=== PATIENT | female | born 1945 | race Hispanic/Latino ===

== ENCOUNTER 2018-01-20 12:39 | Inpatient (IN) | payer MEDICARE ==
[2018-01-20 13:31] LABS: Basophils % (Auto) 0.5 % (0.0-1.8); Eosinophils # (Auto) 0.3 K/mm3 (0.0-0.4); Eosinophils % (Auto) 3.2 % (0.0-4.3); Hematocrit 36.5 % (30.3-42.9); Hemoglobin 11.7 gm/dl (10.1-14.3); Lymphocytes # (Auto) 1.9 K/mm3 (1.2-5.4); Lymphocytes % (Auto) 22.6 % (13.4-35.0); Mean Corpuscular HGB Conc 32 % (30-34); Mean Corpuscular Hemoglobin 28 pg (28-32); Mean Corpuscular Volume 86 fl (79-97); Monocytes # (Auto) 0.6 K/mm3 (0.0-0.8); Monocytes % (Auto) 7.4 % (0.0-7.3); Platelet Count 214 K/mm3 (140-440); Red Blood Count 4.22 M/mm3 (3.65-5.03); Red Cell Distribution Width 14.7 % (13.2-15.2)
[2018-01-20 13:50] LABS: Alanine Aminotransferase 13 units/L (7-56); Albumin 3.9 g/dL (3.9-5); BUN/Creatinine Ratio 28; Blood Urea Nitrogen 11 mg/dL (7-17); Calcium 8.7 mg/dL (8.4-10.2); Hemolysis Index 4
[2018-01-20 14:29] LABS: Bilirubin,Urine NEG (Negative); Blood,Urine NEG (Negative); Color,Urine Yellow (Yellow); Protein,Urine <15 mg/dL mg/dL (Negative); Urobilinogen,Urine < 2.0 mg/dL (<2.0)
[2018-01-20 14:34] LABS: Amphetamine Screen,Urine PRESUMPTIVE NEGATIVE; Benzodiazepines Screen,Urine PRESUMPTIVE NEGATIVE; Cannabinoid Screen,Urine PRESUMPTIVE NEGATIVE; Cocaine Screen,Urine PRESUMPTIVE NEGATIVE; Methadone Screen,Urine PRESUMPTIVE NEGATIVE; Opiate Screen,Urine PRESUMPTIVE NEGATIVE
[2018-01-20] MEDS ORDERED: NACL 0.9% 250ML 250 ML IV ONE (15:09)
[2018-01-20] MEDS ORDERED: SUBLIMAZE IV ONE (15:09)
--- NOTE | 2018-01-20 15:11 | Emergency Department Report ---
ED General Adult HPI - General Chief complaint: Syncope Stated complaint: SYNCOPE Time Seen by Provider: 01/20/18 14:59 Source: patient, EMS (ems notes not available at time of chart dictation), RN notes reviewed Mode of arrival: Ambulatory Limitations: Physical Limitation - History of Present Illness Initial comments: Cardiology: Dr. Hope Primary care: adiel espinoza Past medical history: Aortic valve replacement, hypertension, high cholesterol, diabetes, chronic pain syndrome This is a 72-year-old female who is unknown to this provider previously, reports a recent history of endovascular aortic valve repair/replacement within the past month at [facility], presents to the ER today with a complaint of syncope and abdominal distention. The syncope happened while she was in the shower. It was painless. She doesn't think that she hit her head. She denies headache, neck pain, chest pain. There is chronic abdominal distention for the past 2-3 months, unintentional weight gain, and chronic extremity debility. -: Sudden Severity scale (0 -10): 5 Improves with: none Worsens with: none Associated Symptoms: malaise, syncope, weakness. denies: confusion, chest pain , cough, diaphoresis, fever/chills, headaches, loss of appetite, nausea/vomiting , rash, seizure, shortness of breath - Related Data Home Medications Medication Instructions Recorded Confirmed Last Taken Amlodipine Besylate 10 mg PO DAILY 10/23/15 10/23/15 10/23/15 06:00 AtorvaSTATin [Lipitor] 40 mg PO QHS 10/23/15 10/23/15 10/22/15 21:00 Atorvastatin Calcium [Lipitor] 40 mg PO QHS 10/23/15 10/23/15 10/22/15 21:00 Celecoxib [celeBREX] 50 mg PO BID 10/23/15 10/23/15 10/23/15 06:00 Clopidogrel Bisulfate [Clopidogrel] 75 mg PO DAILY 10/23/15 10/23/15 10/23/15 06 :00 Insulin Aspart [Novolog] 6 unit SQ AC 10/23/15 10/23/15 10/22/15 Insulin Glargine [Lantus VIAL] 20 units SUB-Q QHS 10/23/15 10/23/15 10/22/15 Quinapril HCl 20 mg PO QDAY 03/10/23/15 10/23/15 06:00 cefTRIAXone/NS 2 GM/100 ML 2 gm IV Q24HR 10/23/15 10/23/15 10/22/15 21:00 [Rocephin/Ns 2 gm/100 ml] Previous Rx's Medication Instructions Recorded Last Taken Type Carvedilol [Coreg] 25 mg PO BID #60 tablet 07/14/15 10/23/15 06:00 Rx Gabapentin [Neurontin] 300 mg PO Q8HR capsule 07/14/15 10/23/15 06:00 Rx oxyCODONE ER [OxyCONTIN ER TAB] 60 mg PO Q12HR #60 tablet 07/14/15 10/23/15 06: 00 Rx Allergies Allergy/AdvReac Type Severity Reaction Status Date / Time Sulfa (Sulfonamide Allergy Hives Verified 11/12/17 17:19 Antibiotics) ED Review of Systems ROS: Stated complaint: SYNCOPE Other details as noted in HPI Constitutional: denies: fever Eyes: denies: vision change ENT: denies: epistaxis Respiratory: shortness of breath Cardiovascular: syncope. denies: chest pain Gastrointestinal: denies: abdominal pain, nausea, vomiting Genitourinary: denies: urgency, dysuria Musculoskeletal: arthralgia, myalgia Skin: denies: lesions Neurological: weakness ED Past Medical Hx - Past Medical History Previous Medical History?: Yes Hx Hypertension: Yes Hx CVA: No Hx Heart Attack/AMI: No Hx Congestive Heart Failure: Yes Hx Diabetes: Yes Hx Deep Vein Thrombosis: No Hx Pulmonary Embolism: No Hx GERD: Yes Hx Liver Disease: No Hx Renal Disease: No Hx of Cancer: No Hx Sickle Cell Disease: No Hx Arthritis: Yes Hx Headaches / Migraines: No Hx Seizures: No Hx Kidney Stones: No Hx Psychiatric Treatment: No Hx Asthma: No Hx COPD: No Hx Tuberculosis: No Hx Dementia: No Hx HIV: No Additional medical history: fibromyalgia. nonhodgekins lymphoma - Surgical History Past Surgical History?: Yes Hx Coronary Stent: Yes (4 Last 08/2017) Hx Open Heart Surgery: Yes Hx Pacemaker: No Hx Internal Defibrillator: No Hx Cholecystectomy: Yes Hx Appendectomy: No Hx Breast Surgery: No Additional Surgical History: knee replacement x3. rotator cuff. aortic valve replacement. 4 stints - Social History Smoking Status: Never Smoker Substance Use Type: None - Medications Home Medications: Home Medications Medication Instructions Recorded Confirmed Last Taken Type Carvedilol [Coreg] 25 mg PO BID #60 tablet 07/14/15 10/23/15 10/23/15 06:00 Rx Gabapentin [Neurontin] 300 mg PO Q8HR capsule 07/14/15 10/23/15 10/23/15 06:00 Rx oxyCODONE ER [OxyCONTIN ER TAB] 60 mg PO Q12HR #60 tablet 07/14/15 10/23/15 06:00 Rx Amlodipine Besylate 10 mg PO DAILY 10/23/15 10/23/15 10/23/15 06:00 History AtorvaSTATin [Lipitor] 40 mg PO QHS 10/23/15 10/23/15 10/22/15 21:00 History Atorvastatin Calcium [Lipitor] 40 mg PO QHS 10/23/15 10/23/15 10/22/15 21:00 History Celecoxib [celeBREX] 50 mg PO BID 10/23/15 10/23/15 10/23/15 06:00 History Clopidogrel Bisulfate [Clopidogrel] 75 mg PO DAILY 10/23/15 10/23/15 10/23/15 06 :00 History Insulin Aspart [Novolog] 6 unit SQ AC 10/23/15 10/23/15 10/22/15 History Insulin Glargine [Lantus VIAL] 20 units SUB-Q QHS 10/23/15 10/23/15 10/22/15 History Quinapril HCl 20 mg PO QDAY 10/23/15 10/23/15 10/23/15 06:00 History cefTRIAXone/NS 2 GM/100 ML 2 gm IV Q24HR 10/23/15 10/23/15 10/22/15 21:00 History [Rocephin/Ns 2 gm/100 ml] ED Physical Exam - General Limitations: Physical Limitation General appearance: alert, in no apparent distress - Head Head exam: Present: atraumatic, normocephalic - Eye Eye exam: Present: normal appearance, EOMI. Absent: nystagmus - ENT ENT exam: Present: normal exam, normal orophraynx, mucous membranes moist, normal external ear exam - Neck Neck exam: Present: normal inspection, full ROM - Respiratory Respiratory exam: Present: normal lung sounds bilaterally. Absent: respiratory distress - Cardiovascular Cardiovascular Exam: Present: regular rate, normal rhythm, systolic murmur. Absent: bradycardia, tachycardia, irregular rhythm, diastolic murmur, rubs, gallop - GI/Abdominal GI/Abdominal exam: Present: soft, tenderness, normal bowel sounds. Absent: distended, guarding, rebound, rigid, pulsatile mass - Extremities Exam Extremities exam: Present: normal inspection, pedal edema. Absent: calf tenderness - Back Exam Back exam: Present: normal inspection. Absent: paraspinal tenderness - Neurological Exam Neurological exam: Present: alert, oriented X3, CN II-XII intact - Psychiatric Psychiatric exam: Present: suicidal ideation - Skin Skin exam: Present: warm, dry, intact, normal color. Absent: rash ED Course Vital Signs 01/20/18 01/20/18 01/20/18 12:42 12:55 13:01 Temperature 98.0 F Pulse Rate 85 Respiratory 14 Rate Blood Pressure 149/52 143/54 Blood Pressure 149/52 [Right] O2 Sat by Pulse 97 97 97 Oximetry 01/20/18 01/20/18 01/20/18 14:03 17:37 18:00 Temperature Pulse Rate 88 96 H Respiratory 16 9 L Rate Blood Pressure 148/56 Blood Pressure [Right] O2 Sat by Pulse 98 96 Oximetry - Reevaluation(s) Reevaluation #1: 01/20/18 16:40 Differential diagnosis, including but not limited to: Acute coronary syndrome, vagal event, orthostasis, structural cardiac disease, pulmonary embolus, acute cranial hemorrhage, suicidality, mood disorder Assessment and plan: 72-year-old female with a primary complaint of syncope, secondary complaints of abdominal distention, unintentional weight gain, and endorsement of suicidality. She informed the nurse that she plan to overdose on insulin. We will obtain CAT scan of the brain, CAT scan of the chest, CAT scan of the abdomen/pelvis. Cardiology has been consulted, nila Reyes for patient's primary travel guide is going to see and evaluate the patient. The patient will be placed on a 1013, serum toxicology studies ordered, patient cannot be medically cleared from the emergency room and she will require admission. Reevaluation #2: 01/20/18 18:43 CT scan of the brain is negative. CT scan of the chest is pending CT scan of the abdomen and pelvis shows an anterior abdominal wall hernia, with a short segment of small bowel, with small bowel loops proximal to the herniation dilated 3.5 cm in caliber, likely resulting in a degree of bowel obstruction. The case was discussed with the general surgeon on-call, , who indicated he will follow in consultation, recommended repeat CT scan with oral contrast. Case is presented to the Hospital physician, Dr. Cruz; he accepted the patient to the medical service. Reevaluation #3: 01/20/18 19:52 The inpatient team is going to follow-up on the repeat CT scan with oral contrast. CT scan of the chest shows a small third order sub subsegmental pulmonary embolus. The patient reports she is 275 pounds, and will therefore be given Lovenox, at 120 mg. ED Medical Decision Making - Lab Data Result diagrams: 01/20/18 13:07 01/20/18 13:07 Vital Signs 01/20/18 12:55 Temperature 98.0 F Pulse Rate 85 Respiratory 14 Rate Blood Pressure 149/52 Blood Pressure 149/52 [Right] O2 Sat by Pulse 97 Oximetry Lab Results 01/20/18 01/20/18 01/20/18 Range/Units 13:07 13:07 13:07 WBC 8.6 (4.5-11.0) K/mm3 RBC 4.22 (3.65-5.03) M/mm3 Hgb 11.7 (10.1-14.3) gm/dl Hct 36.5 (30.3-42.9) % MCV 86 (79-97) fl MCH 28 (28-32) pg MCHC 32 (30-34) % RDW 14.7 (13.2-15.2) % Plt Count 214 (140-440) K/mm3 Lymph % (Auto) 22.6 (13.4-35.0) % [place] % (Auto) 7.4 H (0.0-7.3) % Eos % (Auto) 3.2 (0.0-4.3) % Baso % (Auto) 0.5 (0.0-1.8) % Lymph # 1.9 (1.2-5.4) K/mm3 [place] # 0.6 (0.0-0.8) K/mm3 Eos # 0.3 (0.0-0.4) K/mm3 Baso # 0.0 (0.0-0.1) K/mm3 Seg Neutrophils % 66.3 (40.0-70.0) % Seg Neutrophils # 5.7 (1.8-7.7) K/mm3 PT (12.2-14.9) Sec. INR (0.87-1.13) APTT (24.2-36.6) Sec. Sodium 142 (137-145) mmol/L Potassium 4.1 (3.6-5.0) mmol/L Chloride 104.7 (98-107) mmol/L Carbon Dioxide 24 (22-30) mmol/L Anion Gap 17 mmol/L BUN 11 (7-17) mg/dL Creatinine 0.4 L (0.7-1.2) mg/dL Estimated GFR > 60 ml/min BUN/Creatinine Ratio 28 % Glucose 200 H (65-100) mg/dL Calcium 8.7 (8.4-10.2) mg/dL Total Bilirubin 0.30 (0.1-1.2) mg/dL AST 15 (5-40) units/L ALT 13 (7-56) units/L Alkaline Phosphatase 157 H (35-129) units/L NT-Pro-B Natriuret Pep (0-900) pg/mL Total Protein 6.5 (6.3-8.2) g/dL Albumin 3.9 (3.9-5) g/dL Albumin/Globulin Ratio 1.5 % TSH 0.606 (0.270-4.200) mlU/mL Urine Color (Yellow) Urine Turbidity (Clear) Urine pH (5.0-7.0) Ur Specific [place] (1.003-1.030) Urine Protein (Negative) mg/dL Urine Glucose (UA) (Negative) mg/dL Urine Ketones (Negative) mg/dL Urine Blood (Negative) Urine Nitrite (Negative) Urine Bilirubin (Negative) Urine Urobilinogen (<2.0) mg/dL Ur Leukocyte Esterase (Negative) Urine WBC (Auto) (0.0-6.0) /HPF Urine RBC (Auto) (0.0-6.0) /HPF U Epithel Cells (Auto) (0-13.0) /HPF Urine Opiates Screen Urine Methadone Screen Ur Barbiturates Screen Ur Phencyclidine Scrn Ur Amphetamines Screen U Benzodiazepines Scrn Urine Cocaine Screen U Marijuana (THC) Screen Drugs of Abuse Note Plasma/Serum Alcohol (0-0.07) % 01/20/18 01/20/18 01/20/18 Range/Units 13:07 14:15 14:15 WBC (4.5-11.0) K/mm3 RBC (3.65-5.03) M/mm3 Hgb (10.1-14.3) gm/dl Hct (30.3-42.9) % MCV (79-97) fl MCH (28-32) pg MCHC (30-34) % RDW (13.2-15.2) % Plt Count (140-440) K/mm3 Lymph % (Auto) (13.4-35.0) % [place] % (Auto) (0.0-7.3) % Eos % (Auto) (0.0-4.3) % Baso % (Auto) (0.0-1.8) % Lymph # (1.2-5.4) K/mm3 [place] # (0.0-0.8) K/mm3 Eos # (0.0-0.4) K/mm3 Baso # (0.0-0.1) K/mm3 Seg Neutrophils % (40.0-70.0) % Seg Neutrophils # (1.8-7.7) K/mm3 PT (12.2-14.9) Sec. INR (0.87-1.13) APTT (24.2-36.6) Sec. Sodium (137-145) mmol/L Potassium (3.6-5.0) mmol/L Chloride (98-107) mmol/L Carbon Dioxide (22-30) mmol/L Anion Gap mmol/L BUN (7-17) mg/dL Creatinine (0.7-1.2) mg/dL Estimated GFR ml/min BUN/Creatinine Ratio % Glucose (65-100) mg/dL Calcium (8.4-10.2) mg/dL Total Bilirubin (0.1-1.2) mg/dL AST (5-40) units/L ALT (7-56) units/L Alkaline Phosphatase (35-129) units/L NT-Pro-B Natriuret Pep (0-900) pg/mL Total Protein (6.3-8.2) g/dL Albumin (3.9-5) g/dL Albumin/Globulin Ratio % TSH (0.270-4.200) mlU/mL Urine Color Yellow (Yellow) Urine Turbidity Clear (Clear) Urine pH 5.0 (5.0-7.0) Ur Specific [place] 1.016 (1.003-1.030) Urine Protein <15 mg/dl (Negative) mg/dL Urine Glucose (UA) 150 (Negative) mg/dL Urine Ketones Neg (Negative) mg/dL Urine Blood Neg (Negative) Urine Nitrite Neg (Negative) Urine Bilirubin Neg (Negative) Urine Urobilinogen < 2.0 (<2.0) mg/dL Ur Leukocyte Esterase Tr (Negative) Urine WBC (Auto) 1.0 (0.0-6.0) /HPF Urine RBC (Auto) 2.0 (0.0-6.0) /HPF U Epithel Cells (Auto) 5.0 (0-13.0) /HPF Urine Opiates Screen Presumptive negative Urine Methadone Screen Presumptive negative Ur Barbiturates Screen Presumptive negative Ur Phencyclidine Scrn Presumptive negative Ur Amphetamines Screen Presumptive negative U Benzodiazepines Scrn Presumptive negative Urine Cocaine Screen Presumptive negative U Marijuana (THC) Screen Presumptive negative Drugs of Abuse Note Disclamer Plasma/Serum Alcohol < 0.01 (0-0.07) % 01/20/18 01/20/18 Range/Units 15:27 15:27 WBC (4.5-11.0) K/mm3 RBC (3.65-5.03) M/mm3 Hgb (10.1-14.3) gm/dl Hct (30.3-42.9) % MCV (79-97) fl MCH (28-32) pg MCHC (30-34) % RDW (13.2-15.2) % Plt Count (140-440) K/mm3 Lymph % (Auto) (13.4-35.0) % [place] % (Auto) (0.0-7.3) % Eos % (Auto) (0.0-4.3) % Baso % (Auto) (0.0-1.8) % Lymph # (1.2-5.4) K/mm3 [place] # (0.0-0.8) K/mm3 Eos # (0.0-0.4) K/mm3 Baso # (0.0-0.1) K/mm3 Seg Neutrophils % (40.0-70.0) % Seg Neutrophils # (1.8-7.7) K/mm3 PT 13.2 (12.2-14.9) Sec. INR 0.95 (0.87-1.13) APTT 28.0 (24.2-36.6) Sec. Sodium (137-145) mmol/L Potassium (3.6-5.0) mmol/L Chloride (98-107) mmol/L Carbon Dioxide (22-30) mmol/L Anion Gap mmol/L BUN (7-17) mg/dL Creatinine (0.7-1.2) mg/dL Estimated GFR ml/min BUN/Creatinine Ratio % Glucose (65-100) mg/dL Calcium (8.4-10.2) mg/dL Total Bilirubin (0.1-1.2) mg/dL AST (5-40) units/L ALT (7-56) units/L Alkaline Phosphatase (35-129) units/L NT-Pro-B Natriuret Pep 85.15 (0-900) pg/mL Total Protein (6.3-8.2) g/dL Albumin (3.9-5) g/dL Albumin/Globulin Ratio % TSH (0.270-4.200) mlU/mL Urine Color (Yellow) Urine Turbidity (Clear) Urine pH (5.0-7.0) Ur Specific [place] (1.003-1.030) Urine Protein (Negative) mg/dL Urine Glucose (UA) (Negative) mg/dL Urine Ketones (Negative) mg/dL Urine Blood (Negative) Urine Nitrite (Negative) Urine Bilirubin (Negative) Urine Urobilinogen (<2.0) mg/dL Ur Leukocyte Esterase (Negative) Urine WBC (Auto) (0.0-6.0) /HPF Urine RBC (Auto) (0.0-6.0) /HPF U Epithel Cells (Auto) (0-13.0) /HPF Urine Opiates Screen Urine Methadone Screen Ur Barbiturates Screen Ur Phencyclidine Scrn Ur Amphetamines Screen U Benzodiazepines Scrn Urine Cocaine Screen U Marijuana (THC) Screen Drugs of Abuse Note Plasma/Serum Alcohol (0-0.07) % - EKG Data -: EKG Interpreted by Tn EKG shows normal: sinus rhythm Rate: normal - EKG Data 01/20/18 16:40 Sinus, 84 bpm, normal axis, normal intervals, motion artifact, low voltage, Not consistent with a STEMI - Radiology Data Radiology results: pending, report reviewed, image reviewed Critical care attestation.: If time is entered above; I have spent that time in minutes in the direct care of this critically ill patient, excluding procedure time. ED Disposition Clinical Impression: Syncope, Debility, Suicidal ideation Disposition: OP ADMIT IP TO THIS HOSP Is pt being admited?: Yes Condition: Good Instructions: Syncope (ED) Referrals: PRIMARY CARE, [Primary Care Provider] - 3-5 Days
[2018-01-20 15:56] LABS: INR 0.95 (0.87-1.13)
--- NOTE | 2018-01-20 16:57 | Consultation ---
History of Present Illness Consult date: 01/20/18 Consult reason: syncope History of present illness: This is a 72 year old woman who presents to the emergency department with near syncope. Patient reports she was taking a shower when she felt dizzy and lightheaded. Patient denies syncope. She reports holding on to shower rails keeping herself from falling. She denies chest pain and shortness of breath. In addition, patient reports unintentional weight gain and an abdominal distention. She denies nausea vomiting. She denies abdominal pain. Patient has multiple medical problems. She has a cardiac history severe aortic stenosis. In November, patient was transferred to [facility] for surgical AV replacement versus TAVR evaluation after frequent falls and syncope. Patient was evaluated by the CT surgeons and in December, underwent transcatheter aortic valve replacement. Intra operatively, patient had conduction changes to 2nd degree AVB requiring a temporary pacemaker. Post-operatively, this had resolved and the temporary pacemaker was removed. Patient also has a history of coronary artery disease and is status post PCI of the proximal LAD using a drug eluting stent 6 months ago. Patient reports compliance with aspirin and plavix therapy. Medications and Allergies Allergies Allergy/AdvReac Type Severity Reaction Status Date / Time Sulfa (Sulfonamide Allergy Hives Verified 11/12/17 17:19 Antibiotics) Home Medications Medication Instructions Recorded Confirmed Last Taken Type Carvedilol [Coreg] 25 mg PO BID #60 tablet 07/14/15 10/23/15 10/23/15 06:00 Rx Gabapentin [Neurontin] 300 mg PO Q8HR capsule 07/14/15 10/23/15 10/23/15 06:00 Rx oxyCODONE ER [OxyCONTIN ER TAB] 60 mg PO Q12HR #60 tablet 07/14/15 10/23/15 06:00 Rx Amlodipine Besylate 10 mg PO DAILY 10/23/15 10/23/15 10/23/15 06:00 History AtorvaSTATin [Lipitor] 40 mg PO QHS 10/23/15 10/23/15 10/22/15 21:00 History Atorvastatin Calcium [Lipitor] 40 mg PO QHS 10/23/15 10/23/15 10/22/15 21:00 History Celecoxib [celeBREX] 50 mg PO BID 10/23/15 10/23/15 10/23/15 06:00 History Clopidogrel Bisulfate [Clopidogrel] 75 mg PO DAILY 10/23/15 10/23/15 10/23/15 06 :00 History Insulin Aspart [Novolog] 6 unit SQ AC 10/23/15 10/23/15 10/22/15 History Insulin Glargine [Lantus VIAL] 20 units SUB-Q QHS 10/23/15 10/23/15 10/22/15 History Quinapril HCl 20 mg PO QDAY 10/23/15 10/23/15 10/23/15 06:00 History cefTRIAXone/NS 2 GM/100 ML 2 gm IV Q24HR 10/23/15 10/23/15 10/22/15 21:00 History [Rocephin/Ns 2 gm/100 ml] Physical Examination Vital Signs Temp Pulse Resp BP Pulse Ox 98.0 F 85 18 149/52 97 01/20/18 12:55 01/20/18 12:55 01/20/18 12:55 01/20/18 12:55 01/20/18 12:55 General appearance: no acute distress, obese HEENT: Positive: PERRL Cardiac: Positive: Reg Rate and Rhythm Neuro: Positive: Grossly Intact Abdomen: Positive: Distended Results 01/20/18 13:07 01/20/18 13:07 Cardiac Enzymes 01/20/18 Range/Units 13:07 AST 15 (5-40) units/L Coagulation 01/20/18 Range/Units 15:27 PT 13.2 (12.2-14.9) Sec. INR 0.95 (0.87-1.13) APTT 28.0 (24.2-36.6) Sec. CBC 01/20/18 Range/Units 13:07 WBC 8.6 (4.5-11.0) K/mm3 RBC 4.22 (3.65-5.03) M/mm3 Hgb 11.7 (10.1-14.3) gm/dl Hct 36.5 (30.3-42.9) % Plt Count 214 (140-440) K/mm3 Lymph # 1.9 (1.2-5.4) K/mm3 [place] # 0.6 (0.0-0.8) K/mm3 Eos # 0.3 (0.0-0.4) K/mm3 Baso # 0.0 (0.0-0.1) K/mm3 Comprehensive Metabolic Panel 01/20/18 Range/Units 13:07 Sodium 142 (137-145) mmol/L Potassium 4.1 (3.6-5.0) mmol/L Chloride 104.7 (98-107) mmol/L Carbon Dioxide 24 (22-30) mmol/L BUN 11 (7-17) mg/dL Creatinine 0.4 L (0.7-1.2) mg/dL Glucose 200 H (65-100) mg/dL Calcium 8.7 (8.4-10.2) mg/dL AST 15 (5-40) units/L ALT 13 (7-56) units/L Alkaline Phosphatase 157 H (35-129) units/L Total Protein 6.5 (6.3-8.2) g/dL Albumin 3.9 (3.9-5) g/dL
--- NOTE | 2018-01-20 18:19 | Cat Scan Report ---
FINAL REPORT PROCEDURE: CT HEAD/BRAIN WO CON TECHNIQUE: Computerized tomography of the head was performed without contrast material. HISTORY: syncope COMPARISON: No prior studies are available for comparison. FINDINGS: There is no CT evidence of intracranial mass, hemorrhage, acute territorial infarction, or hydrocephalus. The intracranial arteries are symmetric in density. No acute fracture is seen. There is opacification of the left sphenoid sinus. There is right maxillary sinus mucosal thickening. Mastoids are aerated. IMPRESSION: No CT evidence of acute intracranial abnormality. Sinus disease
--- NOTE | 2018-01-20 18:35 | Cat Scan Report ---
FINAL REPORT PROCEDURE: CT ABDOMEN PELVIS W CON TECHNIQUE: Computerized axial tomography of the abdomen and pelvis was performed after the IV injection of iodinated nonionic contrast. HISTORY: syncope COMPARISON: No prior studies are available for comparison. FINDINGS: Visualized lower thorax: No significant abnormality. Liver: Normal size and attenuation. Spleen: Normal size and attenuation. Gallbladder and biliary system: There has been cholecystectomy. Pancreas: Normal. Adrenals: Normal. Kidneys: Normal. GI tract: Appendix is not visualized. There is an anterior abdominal wall periumbilical hernia, containing a short segment of small bowel. Bowel loops proximal to the herniation are mildly dilated, and this may be resulting in partial bowel obstruction. No inflammation is seen. Lymph nodes and mesentery: Normal. Vasculature: Dense aortic atherosclerotic calcification. Bladder: Normal. Reproductive organs: Uterus is absent. Peritoneum: No free fluid. Musculoskeletal structures: Multilevel degenerative disc and facet arthritic changes of the lumbar spine. Other: None. IMPRESSION: There is an anterior abdominal wall periumbilical hernia, containing a short segment of small bowel. Small bowel loops proximal to the herniation are dilated up to 3.5 centimeters in caliber, and this is likely resulting in a degree of bowel obstruction. No inflammation is seen.
[2018-01-20] MEDS ORDERED: LOVENOX SUB-Q ONE (19:49)
--- NOTE | 2018-01-20 19:53 | Cat Scan Report ---
FINAL REPORT PROCEDURE: CT ANGIO CHEST TECHNIQUE: Computerized axial tomographic angiography of the chest and pulmonary arteries was performed after the IV injection of iodinated nonionic contrast. The image data was postprocessed using maximum intensity projection (MIP) and 2-dimensional multiplanar reformatted (MPR) techniques. The examination is specifically tailored to the evaluation of the pulmonary arteries per clinical request. HISTORY: Short of breath 786.09, chest pain 786.50, syncope COMPARISON: No prior studies are available for comparison. FINDINGS: Heart and pericardium: No pericardial effusion or thickening. Thoracic aorta: There is a stent in the ascending aorta. No aneurysm or dissection is seen Pulmonary vasculature: There is a filling defect in one of the 3rd order lateral right lower lobe pulmonary arterial branches. Lymph nodes: 12 millimeter short axis subcarinal lymph node is present. Lungs: Normal. Pleural space: No effusion, thickening, or pneumothorax. Musculoskeletal structures: There are multilevel degenerative disc changes of the thoracic spine. Upper abdominal structures: See separate CT abdomen pelvis report. There is anterior abdominal wall hernia containing a short segment of small bowel, which appears at least partially obstructed IMPRESSION: There is a pulmonary embolus in one of the distal right lower lobe pulmonary arterial branches. Anterior abdominal wall hernia, containing a herniated loop of small bowel which appears at least partially obstructed. Findings were discussed with Dr. Sung by telephone at 6:42 p.m. central standard time on 01/20/2018
--- NOTE | 2018-01-20 22:07 | Cat Scan Report ---
FINAL REPORT PROCEDURE: CT ABDOMEN PELVIS WO CON TECHNIQUE: Computerized axial tomography of the abdomen and pelvis was performed without intravenous contrast. This study is performed without intravascular contrast material and its sensitivity for abdominal and pelvic pathology, including neoplasms, inflammation, abscess, free fluid, thrombosis, arterial dissection and infarction, is reduced compared with a contrast enhanced study. HISTORY: abd pain oral contrast only COMPARISON: 01/20/2018 FINDINGS: Visualized lower thorax: No infiltrates are identified. Liver: Normal size and attenuation. Spleen: Normal size and attenuation. Gallbladder and biliary system: There has been cholecystectomy. Pancreas: Normal. Adrenals: Normal. Kidneys: Excreted contrast material seen in the renal collecting systems. Note is made of bilateral parapelvic cysts. No hydronephrosis bilaterally. GI tract: There is again seen an anterior abdominal wall hernia, with a herniated loop of small bowel. There is a caliber transition at the hernia site, with dilated small bowel loop proximal to the hernia, measuring up to 3.5 centimeters in caliber, and decompressed bowel loop seen distal to the hernia. However oral contrast transits beyond this point. Findings are consistent with partial obstruction. Oral contrast during the scan time transits all the way to the anorectal junction, with no evidence of complete bowel obstruction. Lymph nodes and mesentery: Normal. Vasculature: There is dense atherosclerotic calcification of the aorta. Bladder: Normal. Reproductive organs: Uterus is not visualized. Peritoneum: No free fluid. Musculoskeletal structures: No significant abnormality. Other: None. IMPRESSION: There is an anterior abdominal wall hernia containing a loop of herniated small bowel, with findings consistent with a partial small bowel obstruction. There is no complete obstruction, and oral contrast transits to the anorectal junction during the scan time..
[2018-01-20] MEDS ORDERED: AMBIEN PO PRN (23:07)
[2018-01-20] MEDS ORDERED: ZOFRAN IV PRN ×2 (23:07→23:11)
[2018-01-20] MEDS ORDERED: TYLENOL PO PRN ×2 (23:07→23:11)
[2018-01-20] MEDS ORDERED: SODIUM CHLORIDE FLUSH SYRINGE 10 ML IV PRN ×2 (23:07→23:11)
[2018-01-20] MEDS ORDERED: NACL 0.9% 1000 ML 1,000 ML IV SCH (23:45)
[2018-01-21] MEDS: MORPHINE IV PRN ×5 (02:18→22:54)
--- NOTE | 2018-01-21 02:59 | Event Note ---
Date: 01/20/18 See H/p in reports
--- NOTE | 2018-01-21 04:09 | History and Physical Report ---
CHIEF COMPLAINT: 1. Passed out in the morning. 2. Abdominal pain. HISTORY OF PRESENT ILLNESS: A 72-year-old female with a history of aortic valve repair and replacement within the past month at [facility], comes in for passing out. Also, abdominal discomfort. The syncope happened while she was in the shower. She did not hit her head. Also, the patient has chronic abdominal distention for the last 2-3 months and unintentional weight gain and chronic debility. PAST MEDICAL HISTORY: Significant for hypertension, hyperlipidemia, arthritis, coronary artery disease, insulin-dependent diabetes. PAST SURGICAL HISTORY: Significant for knee replacement x 3, rotator cuff surgery, aortic valve replacement and 4 stents and also cholecystectomy. SOCIAL HISTORY: Does not smoke. No alcohol. No recreational drugs. FAMILY HISTORY: Hypertension. CURRENT MEDICATIONS: On the chart including Coreg 25 b.i.d. and gabapentin 300 mg p.o. q.8, insulin 6 units before each meal, Lantus 20 units subcutaneously at bedtime. REVIEW OF SYSTEMS: Significant for syncope and abdominal pain and discomfort. Otherwise, review of systems is negative. PHYSICAL EXAMINATION: GENERAL: Elderly female, cooperative during examination. VITAL SIGNS: Temperature is 98.6, pulse is 96, respirations ____, sats are 96%. HEENT: Unremarkable. NECK: Supple. No lymphadenopathy. No thyromegaly. LUNGS: Clear to auscultation and percussion. Good air entry. CARDIOVASCULAR: S1, S2 heard. No gallop. No murmur. No rub. Apical impulse in the left fifth intercostal space and midclavicular line. ABDOMEN: Slightly tender all over. EXTREMITIES: Good pedal pulses. No pedal edema. CENTRAL NERVOUS SYSTEM: Alert and oriented x 4. Nonfocal exam. LABORATORY DATA: CT angiogram shows pulmonary embolus in the distal right lower lobe. Anterior abdominal wall hernia containing herniated loop of small bowel, which appears at least partially obstructed. The abdomen and pelvis CT shows an anterior abdominal wall periumbilical hernia containing a short segment of small bowel. Small bowel loops proximal to the herniation are dilated up to 3.5 cm in caliber and this is likely resulting in a degree of bowel obstruction. No inflammation is seen. Head CT within normal limits. Labs are significant for white count of 8600, normal hemoglobin, hematocrit and platelets. The electrolytes are normal. Glucose is high 200 and the A1c is 7.8. Urine is normal. ASSESSMENT AND PLAN: 1. Syncope. Syncope workup. The patient to get carotid duplex scan and Lexiscan. Lexiscan later, but carotid duplex scan and echocardiogram. Lexiscan not ordered because the patient may be having pulmonary embolism and small-bowel obstruction. 2. Acute pulmonary embolism. The patient is initiated on Lovenox 100 mg subcutaneous q. 12. 3. Partial small-bowel obstruction secondary to loops being obstructed in the umbilical hernia. We will get a surgical opinion. In the meantime, the patient is to be on only clear liquids. The patient does not have vomiting, so clear liquids should be fine. Dr. Chema Stone is consulted. 4. Hypertension. We will hold the antihypertensive medicines and put her on Catapres patch. 5. Coronary artery disease. We will hold the Plavix for the time being. 6. Insulin-dependent diabetes, coverage only for the time being. 7. Hyperlipidemia. We will hold the atorvastatin. 8. Deep venous thrombosis prophylaxis. Heparin/Lovenox ordered. Gastrointestinal prophylaxis initiated. JOB# [id number] VSM/NTS
[2018-01-21] MEDS: HumaLOG SUB-Q SCH ×6 (07:07→22:46)
[2018-01-21] MEDS: SODIUM CHLORIDE FLUSH SYRINGE 10 ML IV SCH ×2 (09:50→22:56)
[2018-01-21] MEDS ORDERED: CATAPRES-TTS PATCH TD SCH (10:00)
[2018-01-21] MEDS ORDERED: SODIUM CHLORIDE FLUSH SYRINGE 10 ML IV SCH (10:00)
[2018-01-21] MEDS: LOVENOX SUB-Q SCH ×2 (10:19→22:54)
[2018-01-21 10:35] LABS: Basophils # (Auto) 0.1 K/mm3 (0.0-0.1); Basophils % (Auto) 0.8 % (0.0-1.8); Eosinophils # (Auto) 0.2 K/mm3 (0.0-0.4); Eosinophils % (Auto) 2.1 % (0.0-4.3); Hematocrit 36.7 % (30.3-42.9); Lymphocytes # (Auto) 1.6 K/mm3 (1.2-5.4); Lymphocytes % (Auto) 18.4 % (13.4-35.0); Mean Corpuscular HGB Conc 33 % (30-34); Mean Corpuscular Hemoglobin 28 pg (28-32); Mean Corpuscular Volume 85 fl (79-97); Monocytes # (Auto) 0.6 K/mm3 (0.0-0.8); Monocytes % (Auto) 6.8 % (0.0-7.3); Platelet Count 192 K/mm3 (140-440); Red Blood Count 4.33 M/mm3 (3.65-5.03); Red Cell Distribution Width 14.7 % (13.2-15.2)
--- NOTE | 2018-01-21 10:37 | Progress Note ---
Assessment and Plan Assessment and plan: Patient is a 72-year-old woman with a history of aortic stenosis and coronary artery disease. She is status post multiple coronary stent procedures, and most recently last month underwent percutaneous trans-aortic valve replacement/ TAVE. She states that she underwent the percutaneous procedure because she was deemed a high risk for surgical aortic valve replacement who pw syncope and found to have PE. She also complained of abdominal distention, unintentional weight gain, and SI. She informed the ED nurse that she plan to overdose on insulin, placed on a 1013 by ED physician. * CT abd/pelvis without contrast IMPRESSION: There is an anterior abdominal wall hernia containing a loop of herniated small bowel, with findings consistent with a partial small bowel obstruction. There is no complete obstruction, and oral contrast transits to the anorectal junction during the scan time.. ==>The case was discussed with the general surgeon on-call, , who indicated he will follow in consultation, recommended repeat CT scan with oral contrast. * CT abd/pelvis with IV contrast IMPRESSION: There is an anterior abdominal wall periumbilical hernia, containing a short segment of small bowel. Small bowel loops proximal to the herniation are dilated up to 3.5 centimeters in caliber, and this is likely resulting in a degree of bowel obstruction. No inflammation is seen. * CTA chest IMPRESSION: There is a pulmonary embolus in one of the distal right lower lobe pulmonary arterial branches. Anterior abdominal wall hernia, containing a herniated loop of small bowel which appears at least partially obstructed. * CT head without contrast FINDINGS: There is no CT evidence of intracranial mass, hemorrhage, acute territorial infarction, or hydrocephalus. The intracranial arteries are symmetric in density. No acute fracture is seen. There is opacification of the left sphenoid sinus. There is right maxillary sinus mucosal thickening. Mastoids are aerated. IMPRESSION: No CT evidence of acute intracranial abnormality. Sinus disease * CAROTID DOPPLER COMPLETED, <50% STENOSIS BILATERALLY BY DOPPLER VELOCITIES, BILATERAL ANTEGRADE VERTEBRAL FLOW, Initialized on 01/21/18 08:37 - END OF NOTE -Syncope, PE related: treat the PE -IDDM: ada diet, ssi for now -Suicidial ideation suspected MDD: consulted mental health, continue 1013, suicidal precautions with sitter. -Acute Right PE: treat with anticoagulant -Morbid obesity, bmi 47: education on lifestyle modification not well received. -Recent TAVE: Cardiology consulted -pSBO, ?incarcerated umbilical hernia: gen. Surgery notified in ED per records== >d/w Dr. Stone, no pSBO or incarcerated hernia, ok to feed her. -CAD on plavix: held, await Cardiology input -DVT prophylaxis: a/c History Interval history: Patient was seen and examined. Follow-up on current diagnosis. Overnight uneventful. Patient denies any chest pain, shortness breath, nausea/vomiting or severe headaches. Imaging, nursing note, chart, labs and old chart reviewed. Discussed with patient. Hospitalist Physical - Physical exam Narrative exam: GEN: WDWN, NAD, Awake, Alert, Orientated x 3 HEENT: NCAT, EOMI, PERRL, OP Clear NECK: supple, no adenopathy, no thyromegaly, no JVD CVS/HEART: RRR, normal S1S2, pulses present bilaterally CHEST/LUNGS: CTA B, Symmetrical chest expansion, good air entry bilaterally GI/Abdomen: soft, NTND, good bowel sounds, no guarding or rebound /Bladder: no suprapubic tenderness, no CVA or paraspinal tenderness EXT/Skin: no c/c/e, no obvious rash MSK: FROM x 4 Neuro: CN 2-12 grossly intact, no new focal deficits Psych: calm - Constitutional Vitals: Temp Pulse Resp BP Pulse Ox 97.6 F 90 21 148/74 96 01/21/18 08:07 01/21/18 10:12 01/21/18 08:07 01/21/18 10:12 01/21/18 08:07 General appearance: Present: no acute distress, obese Results - Labs CBC & Chem 7: 01/21/18 10:10 01/21/18 10:10 Labs: Laboratory Last Values WBC 8.6 K/mm3 (4.5-11.0) 01/20/18 13:07 RBC 4.22 M/mm3 (3.65-5.03) 01/20/18 13:07 Hgb 11.7 gm/dl (10.1-14.3) 01/20/18 13:07 Hct 36.5 % (30.3-42.9) 01/20/18 13:07 MCV 86 fl (79-97) 01/20/18 13:07 MCH 28 pg (28-32) 01/20/18 13:07 MCHC 32 % (30-34) 01/20/18 13:07 RDW 14.7 % (13.2-15.2) 01/20/18 13:07 Plt Count 214 K/mm3 (140-440) 01/20/18 13:07 Lymph % (Auto) 22.6 % (13.4-35.0) 01/20/18 13:07 [place]ult[place] % (Auto) 7.4 % (0.0-7.3) H 01/20/18 13:07 Eos % (Auto) 3.2 % (0.0-4.3) 01/20/18 13:07 Baso % (Auto) 0.5 % (0.0-1.8) 01/20/18 13:07 Lymph # 1.9 K/mm3 (1.2-5.4) 01/20/18 13:07 Fulton # 0.6 K/mm3 (0.0-0.8) 01/20/18 13:07 Eos # 0.3 K/mm3 (0.0-0.4) 01/20/18 13:07 Baso # 0.0 K/mm3 (0.0-0.1) 01/20/18 13:07 Seg Neutrophils % 66.3 % (40.0-70.0) 01/20/18 13:07 Seg Neutrophils # 5.7 K/mm3 (1.8-7.7) 01/20/18 13:07 PT 13.2 Sec. (12.2-14.9) 01/20/18 15:27 INR 0.95 (0.87-1.13) 01/20/18 15:27 APTT 28.0 Sec. (24.2-36.6) 01/20/18 15:27 Sodium 142 mmol/L (137-145) 01/20/18 13:07 Potassium 4.1 mmol/L (3.6-5.0) 01/20/18 13:07 Chloride 104.7 mmol/L (98-107) 01/20/18 13:07 Carbon Dioxide 24 mmol/L (22-30) 01/20/18 13:07 Anion Gap 17 mmol/L 01/20/18 13:07 BUN 11 mg/dL (7-17) 01/20/18 13:07 Creatinine 0.4 mg/dL (0.7-1.2) L 01/20/18 13:07 Estimated GFR > 60 ml/min 01/20/18 13:07 BUN/Creatinine Ratio 28 % 01/20/18 13:07 Glucose 200 mg/dL (65-100) H 01/20/18 13:07 POC Glucose 178 (70-105) H 01/21/18 07:53 Hemoglobin A1c 7.8 % (4-6) H 01/20/18 23:38 Calcium 8.7 mg/dL (8.4-10.2) 01/20/18 13:07 Total Bilirubin 0.30 mg/dL (0.1-1.2) 01/20/18 13:07 AST 15 units/L (5-40) 01/20/18 13:07 ALT 13 units/L (7-56) 01/20/18 13:07 Alkaline Phosphatase 157 units/L (35-129) H 01/20/18 13:07 NT-Pro-B Natriuret Pep 85.15 pg/mL (0-900) 01/20/18 15:27 Total Protein 6.5 g/dL (6.3-8.2) 01/20/18 13:07 Albumin 3.9 g/dL (3.9-5) 01/20/18 13:07 Albumin/Globulin Ratio 1.5 % 01/20/18 13:07 TSH 0.606 mlU/mL (0.270-4.200) 01/20/18 13:07 Urine Color Yellow (Yellow) 01/20/18 14:15 Urine Turbidity Clear (Clear) 01/20/18 14:15 Urine pH 5.0 (5.0-7.0) 01/20/18 14:15 Ur Specific Kite 1.016 (1.003-1.030) 01/20/18 14:15 Urine Protein <15 mg/dl mg/dL (Negative) 01/20/18 14:15 Urine Glucose (UA) 150 mg/dL (Negative) 01/20/18 14:15 Urine Ketones Neg mg/dL (Negative) 01/20/18 14:15 Urine Blood Neg (Negative) 01/20/18 14:15 Urine Nitrite Neg (Negative) 01/20/18 14:15 Urine Bilirubin Neg (Negative) 01/20/18 14:15 Urine Urobilinogen < 2.0 mg/dL (<2.0) 01/20/18 14:15 Ur Leukocyte Esterase Tr (Negative) 01/20/18 14:15 Urine WBC (Auto) 1.0 /HPF (0.0-6.0) 01/20/18 14:15 Urine RBC (Auto) 2.0 /HPF (0.0-6.0) 01/20/18 14:15 U Epithel Cells (Auto) 5.0 /HPF (0-13.0) 01/20/18 14:15 Salicylates < 0.3 mg/dL (2.8-20.0) L 01/20/18 16:44 Urine Opiates Screen Presumptive negative 01/20/18 14:15 Urine Methadone Screen Presumptive negative 01/20/18 14:15 Acetaminophen < 5.0 ug/mL (10.0-30.0) L 01/20/18 16:44 Ur Barbiturates Screen Presumptive negative 01/20/18 14:15 Ur Phencyclidine Scrn Presumptive negative 01/20/18 14:15 Ur Amphetamines Screen Presumptive negative 01/20/18 14:15 U Benzodiazepines Scrn Presumptive negative 01/20/18 14:15 Urine Cocaine Screen Presumptive negative 01/20/18 14:15 U Marijuana (THC) Screen Presumptive negative 01/20/18 14:15 Drugs of Abuse Note Disclamer 01/20/18 14:15 Plasma/Serum Alcohol < 0.01 % (0-0.07) 01/20/18 13:07
[2018-01-21 10:56] LABS: Alanine Aminotransferase 11 units/L (7-56); Albumin 3.7 g/dL (3.9-5); BUN/Creatinine Ratio 13; Blood Urea Nitrogen 5 mg/dL (7-17); Calcium 9.2 mg/dL (8.4-10.2); Hemolysis Index 75
--- NOTE | 2018-01-21 12:05 | Progress Note ---
Assessment and Plan Acute PE Near-syncope Hx of Aortic Stenosis s/p TAVR 12/2017 Hx of CAD Normal LVEF by echo at [place] 01/2018. Subjective Date of service: 01/21/18 Interval history: Patient denies chest pain and shortness of breath. Objective Vital Signs Temp Pulse Resp BP BP Pulse Ox 01/21/18 10:12 90 148/74 01/21/18 08:07 97.6 F 93 H 21 148/74 96 01/20/18 20:01 97 H 15 153/50 96 01/20/18 19:01 96 H 14 168/54 97 01/20/18 18:25 91 H 16 148/56 97 01/20/18 18:00 96 H 9 L 148/56 96 01/20/18 17:37 88 16 01/20/18 14:03 98 01/20/18 13:01 143/54 97 01/20/18 12:55 98.0 F 85 14 149/52 149/52 97 01/20/18 12:42 97 - Physical Examination General: No Apparent Distress HEENT: Positive: PERRL Cardiac: Positive: Reg Rate and Rhythm Neuro: Positive: Grossly Intact Abdomen: Positive: Distended - Labs and Meds Cardiac Enzymes 01/20/18 Range/Units 13:07 AST 15 (5-40) units/L Coagulation 01/20/18 Range/Units 15:27 PT 13.2 (12.2-14.9) Sec. INR 0.95 (0.87-1.13) APTT 28.0 (24.2-36.6) Sec. CBC 01/20/18 01/21/18 Range/Units 13:07 10:10 WBC 8.6 8.7 (4.5-11.0) K/mm3 RBC 4.22 4.33 (3.65-5.03) M/mm3 Hgb 11.7 12.0 (10.1-14.3) gm/dl Hct 36.5 36.7 (30.3-42.9) % Plt Count 214 192 (140-440) K/mm3 Lymph # 1.9 1.6 (1.2-5.4) K/mm3 Ralls # 0.6 0.6 (0.0-0.8) K/mm3 Eos # 0.3 0.2 (0.0-0.4) K/mm3 Baso # 0.0 0.1 (0.0-0.1) K/mm3 Comprehensive Metabolic Panel 01/20/18 01/21/18 Range/Units 13:07 10:10 Sodium 142 142 (137-145) mmol/L Potassium 4.1 4.3 (3.6-5.0) mmol/L Chloride 104.7 104.4 (98-107) mmol/L Carbon Dioxide 24 24 (22-30) mmol/L BUN 11 5 L (7-17) mg/dL Creatinine 0.4 L 0.4 L (0.7-1.2) mg/dL Glucose 200 H 173 H (65-100) mg/dL Calcium 8.7 9.2 (8.4-10.2) mg/dL AST 15 (5-40) units/L ALT 13 11 (7-56) units/L Alkaline Phosphatase 157 H 119 (35-129) units/L Total Protein 6.5 6.4 (6.3-8.2) g/dL Albumin 3.9 3.7 L (3.9-5) g/dL
--- NOTE | 2018-01-21 12:43 | Progress Note ---
Assessment and Plan Consult dictated: as below: Assessment and plan: Patient is a 72-year-old woman with a history of aortic stenosis and coronary artery disease. She is status post multiple coronary stent procedures, and most recently last month underwent percutaneous trans-aortic valve replacement/ TAVE. She states that she underwent the percutaneous procedure because she was deemed a high risk for surgical aortic valve replacement who pw syncope and found to have PE. She also complained of abdominal distention, unintentional weight gain, and SI. She informed the ED nurse that she plan to overdose on insulin, placed on a 1013 by ED physician. * CT abd/pelvis without contrast IMPRESSION: There is an anterior abdominal wall hernia containing a loop of herniated small bowel, with findings consistent with a partial small bowel obstruction. There is no complete obstruction, and oral contrast transits to the anorectal junction during the scan time.. ==>The case was discussed with the general surgeon on-call, , who indicated he will follow in consultation, recommended repeat CT scan with oral contrast. * CT abd/pelvis with IV contrast IMPRESSION: There is an anterior abdominal wall periumbilical hernia, containing a short segment of small bowel. Small bowel loops proximal to the herniation are dilated up to 3.5 centimeters in caliber, and this is likely resulting in a degree of bowel obstruction. No inflammation is seen. * CTA chest IMPRESSION: There is a pulmonary embolus in one of the distal right lower lobe pulmonary arterial branches. Anterior abdominal wall hernia, containing a herniated loop of small bowel which appears at least partially obstructed. * CT head without contrast FINDINGS: There is no CT evidence of intracranial mass, hemorrhage, acute territorial infarction, or hydrocephalus. The intracranial arteries are symmetric in density. No acute fracture is seen. There is opacification of the left sphenoid sinus. There is right maxillary sinus mucosal thickening. Mastoids are aerated. IMPRESSION: No CT evidence of acute intracranial abnormality. Sinus disease * CAROTID DOPPLER COMPLETED, <50% STENOSIS BILATERALLY BY DOPPLER VELOCITIES, BILATERAL ANTEGRADE VERTEBRAL FLOW, Initialized on 01/21/ * * * CT read by celestino mentions r/o partial sbo. * * reviewed f/u CT with po contrast with radiologist. no evidence of partial obstruction. contrast flows freely thru hernia site. no evidence of dilated proximal bowel. * * pt states neg abd pain. neg N or V. reg BM"s * * Abd obese, soft, non tender * * * imp * * asymptomatic incisional herina. * * attempt po diet * * will follow prn Selected Entries 01/20/18 01/21/18 01/21/18 20:01 08:07 10:12 Temperature 97.6 F Pulse Rate 90 Respiratory 15 Rate Blood Pressure 148/74 Laboratory Tests 01/20/18 01/21/18 01/21/18 13:07 10:10 10:10 WBC 8.7 Hgb 12.0 Hct 36.7 Sodium 142 Potassium 4.3 Chloride 104.4 Carbon Dioxide 24 BUN 5 L Creatinine 0.4 L AST 15 ALT 13 Alkaline Phosphatase 157 H Objective Vital Signs - 12hr 01/21/18 01/21/18 08:07 10:12 Temperature 97.6 F Pulse Rate 93 H 90 Respiratory 21 Rate Blood Pressure 148/74 Blood Pressure 148/74 [Right] O2 Sat by Pulse 96 Oximetry - Labs 01/21/18 10:10 01/21/18 10:10 Diabetes panel 01/20/18 01/20/18 01/21/18 Range/Units 13:07 23:38 10:10 Sodium 142 142 (137-145) mmol/L Potassium 4.1 4.3 (3.6-5.0) mmol/L Chloride 104.7 104.4 (98-107) mmol/L Carbon Dioxide 24 24 (22-30) mmol/L BUN 11 5 L (7-17) mg/dL Creatinine 0.4 L 0.4 L (0.7-1.2) mg/dL Glucose 200 H 173 H (65-100) mg/dL Hemoglobin A1c 7.8 H (4-6) % Calcium 8.7 9.2 (8.4-10.2) mg/dL AST 15 18 (5-40) units/L ALT 13 11 (7-56) units/L Alkaline Phosphatase 157 H 119 (35-129) units/L Total Protein 6.5 6.4 (6.3-8.2) g/dL Albumin 3.9 3.7 L (3.9-5) g/dL Thyroid panel 01/20/18 Range/Units 13:07 TSH 0.606 (0.270-4.200) mlU/mL Calcium panel 01/20/18 01/21/18 Range/Units 13:07 10:10 Calcium 8.7 9.2 (8.4-10.2) mg/dL Albumin 3.9 3.7 L (3.9-5) g/dL Pituitary panel 01/20/18 01/20/18 01/21/18 Range/Units 13:07 13:07 10:10 Sodium 142 142 (137-145) mmol/L Potassium 4.1 4.3 (3.6-5.0) mmol/L Chloride 104.7 104.4 (98-107) mmol/L Carbon Dioxide 24 24 (22-30) mmol/L BUN 11 5 L (7-17) mg/dL Creatinine 0.4 L 0.4 L (0.7-1.2) mg/dL Glucose 200 H 173 H (65-100) mg/dL Calcium 8.7 9.2 (8.4-10.2) mg/dL TSH 0.606 (0.270-4.200) mlU/mL Adrenal panel 01/20/18 01/21/18 Range/Units 13:07 10:10 Sodium 142 142 (137-145) mmol/L Potassium 4.1 4.3 (3.6-5.0) mmol/L Chloride 104.7 104.4 (98-107) mmol/L Carbon Dioxide 24 24 (22-30) mmol/L BUN 11 5 L (7-17) mg/dL Creatinine 0.4 L 0.4 L (0.7-1.2) mg/dL Glucose 200 H 173 H (65-100) mg/dL Calcium 8.7 9.2 (8.4-10.2) mg/dL Total Bilirubin 0.30 0.50 (0.1-1.2) mg/dL AST 15 18 (5-40) units/L ALT 13 11 (7-56) units/L Alkaline Phosphatase 157 H 119 (35-129) units/L Total Protein 6.5 6.4 (6.3-8.2) g/dL Albumin 3.9 3.7 L (3.9-5) g/dL
[2018-01-21] MEDS ORDERED: D50W (25GM) Syringe IV PRN (12:45)
[2018-01-21] MEDS: LASIX PO SCH (13:41)
[2018-01-21] MEDS: NORVASC PO SCH (13:42)
[2018-01-21] MEDS: ZESTRIL PO SCH (13:42)
[2018-01-21] MEDS: COREG PO SCH ×2 (13:42→22:55)
--- NOTE | 2018-01-21 14:29 | Consultation ---
REASON FOR CONSULTATION: Rule out partial small bowel obstruction secondary to an incisional hernia. HISTORY OF PRESENT ILLNESS: The patient is a 72-year-old female with multitude of medical problems including history of aortic stenosis and coronary artery disease as well as diabetes. Recently is status post percutaneous transaortic valve replacement. The patient arrived to the Emergency Room complaining of some abdominal distention. Also, apparently stated she planned to overdose on insulin. A CT scan of the abdomen was performed [facility] possible partial small-bowel obstruction. Thus, the reason for my consultation. However, subsequent CT with p.o. contrast was done and reviewed by myself with the radiologist here on site. There is no evidence of any partial obstruction noted at this time. The contrast flows freely through the site of the incisional hernia and there is no evidence of any proximal small bowel dilatation. On exam, the abdomen itself is obese and soft. There is no tenderness along the incisional hernia site. The patient also states she has no signs of nausea or vomiting, and is having regular BMs. IMPRESSION: At this time is that of a 72-year-old psychiatric female with multitude of medical problems. An asymptomatic incisional hernia noted at this time. RECOMMENDATIONS: Would be to attempt a p.o. diet as tolerated. We will follow up p.r.n. Please call with any nausea, abdominal distention or pain, etc. occurs. JOB# [id number] MARK/HELGA
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
[2018-01-21] MEDS ORDERED: [UNRECOGNIZED DRUG - OTHER] PO SCH (22:00)
[2018-01-21] MEDS ORDERED: NON-FORMULARY (Atorvastatin Calcium [Lipitor] 80 MG) PO SCH (22:00)
[2018-01-21] MEDS ORDERED: CHOLESTYRAMINE 378 GM PO SCH (22:00)
[2018-01-21] MEDS ORDERED: NON-FORMULARY (Pregabalin [Lyrica] 150 MG) PO SCH (22:00)
[2018-01-21] MEDS ORDERED: NON-FORMULARY (Insulin Glargine,Hum.Rec.Anlog [Toujeo Solostar] 30 UNITS) SC SCH (22:00)
[2018-01-21] MEDS: QUESTRAN PO SCH (22:54)
[2018-01-21] MEDS: LYRICA PO SCH (22:55)
[2018-01-22] MEDS: MORPHINE IV PRN (03:18)
[2018-01-22] MEDS: NORCO 10/325 PO PRN ×3 (06:51→22:11)
[2018-01-22] MEDS: HumaLOG SUB-Q SCH ×4 (07:56→23:38)
--- NOTE | 2018-01-22 09:14 | Progress Note ---
Assessment and Plan Acute PE Near-syncope Hx of Aortic Stenosis s/p TAVR 12/2017 Hx of CAD Normal LVEF by echo at [place] 01/2018. Recommendations: Medical therapy for coronary artery disease. Otherwise, conservative cardiac management. Subjective Date of service: 01/22/18 Interval history: Patient has no complaints. No reported events on telemetry monitoring. Sitter at bedside. Objective Vital Signs Temp Pulse Resp BP BP Pulse Ox 01/22/18 08:07 97.9 F 68 18 156/50 93 01/22/18 06:23 98.1 F 69 18 121/35 94 01/22/18 00:32 79 01/21/18 20:50 97.5 F L 71 20 96 01/21/18 19:53 20 140/59 01/21/18 17:46 97.8 F 80 19 113/72 97 01/21/18 13:06 99 01/21/18 13:02 94 H 01/21/18 12:37 98.6 F 84 18 157/63 96 01/21/18 10:12 90 148/74 - Physical Examination General: No Apparent Distress HEENT: Positive: PERRL Cardiac: Positive: Reg Rate and Rhythm Lungs: Positive: Decreased Breath Sounds Neuro: Positive: Grossly Intact - Labs and Meds Cardiac Enzymes 01/21/18 Range/Units 10:10 AST 18 (5-40) units/L CBC 01/21/18 Range/Units 10:10 WBC 8.7 (4.5-11.0) K/mm3 RBC 4.33 (3.65-5.03) M/mm3 Hgb 12.0 (10.1-14.3) gm/dl Hct 36.7 (30.3-42.9) % Plt Count 192 (140-440) K/mm3 Lymph # 1.6 (1.2-5.4) K/mm3 [place] # 0.6 (0.0-0.8) K/mm3 Eos # 0.2 (0.0-0.4) K/mm3 Baso # 0.1 (0.0-0.1) K/mm3 Comprehensive Metabolic Panel 01/21/18 Range/Units 10:10 Sodium 142 (137-145) mmol/L Potassium 4.3 (3.6-5.0) mmol/L Chloride 104.4 (98-107) mmol/L Carbon Dioxide 24 (22-30) mmol/L BUN 5 L (7-17) mg/dL Creatinine 0.4 L (0.7-1.2) mg/dL Glucose 173 H (65-100) mg/dL Calcium 9.2 (8.4-10.2) mg/dL AST 18 (5-40) units/L ALT 11 (7-56) units/L Alkaline Phosphatase 119 (35-129) units/L Total Protein 6.4 (6.3-8.2) g/dL Albumin 3.7 L (3.9-5) g/dL
[2018-01-22] MEDS: LOVENOX SUB-Q SCH (10:13)
[2018-01-22] MEDS: COREG PO SCH ×2 (12:02→22:12)
[2018-01-22] MEDS: LASIX PO SCH (12:03)
[2018-01-22] MEDS: LYRICA PO SCH ×2 (12:04→22:12)
[2018-01-22] MEDS: NORVASC PO SCH (12:05)
[2018-01-22] MEDS: QUESTRAN PO SCH ×2 (12:08→22:12)
[2018-01-22] MEDS: ZESTRIL PO SCH (12:09)
[2018-01-22] MEDS: SODIUM CHLORIDE FLUSH SYRINGE 10 ML IV SCH ×2 (12:09→22:15)
--- NOTE | 2018-01-22 13:55 | Progress Note ---
Subjective - Reason for Consult Consult date: 01/22/18 Reason for consult: Psychiatry Follow-up - Chief Complaint Chief complaint: "I'm having a hard time now" 72 year old white female who presents to the emergency room with a history of aortic stenosis and coronary artery disease. She is status post multiple coronary stent procedures and most recently last month underwent percutaneous trans-aortic valve replacement/TAVE. She informed the ED nurse that she plan to overdose on insulin, so the patient was placed on a 1013 by ED physician. Today the patient is calm and cooperative during the assessment. She stated that she was "speaking out of term" when she mentioned overdosing on insulin in the ER. She stated that she is depressed because of her "medical issues", but denies being suicidal. Also, she stated being stressed because she is in the process of moving. She denies SI/HI's and AVH's. She stated that she will consider taking an SSRI in 24 hours. Mental Status Exam - Vital signs Last Vital Signs Temp 97.9 F 01/22/18 13:13 Pulse 71 01/22/18 13:13 Resp 18 01/22/18 13:13 BP 149/37 01/22/18 13:13 Pulse Ox 92 01/22/18 13:13 - Exam Narrative exam: MSE: Appearance: calm, cooperative Behavior: regular eye contact Speech: regular rate and tone Mood: "depressed" Affect: congruent to mood Thought Process: linear Thought Content: denies SI/HI's and AVH's Motor Activity: lying in bed Cognition: A/O x 3 Insight: fair Judgment: fair Assessment and Plan Impression: MDD. Today the patient is calm and cooperative during the assessment. DDx: Adjustment DO Recommendations/Plans: Continue 1013, gather collateral information, and reevaluate 1013 in 24 hours. Discussed benefits/risks to taking an anti- depressant. The patient will consider taking an SSRI in 24 hours.
[2018-01-22] MEDS: ELIQUIS PO SCH ×2 (15:28→22:11)
--- NOTE | 2018-01-22 17:17 | Progress Note ---
Assessment and Plan Assessment and plan: Patient is a 72-year-old woman with a history of aortic stenosis and coronary artery disease. She is status post multiple coronary stent procedures, and most recently last month underwent percutaneous trans-aortic valve replacement/ TAVR. She states that she underwent the percutaneous procedure because she was deemed a high risk for surgical aortic valve replacement who pw syncope and found to have PE. She also complained of abdominal distention, unintentional weight gain, and SI. She informed the ED nurse that she plan to overdose on insulin, placed on a 1013 by ED physician. * CT abd/pelvis without contrast IMPRESSION: There is an anterior abdominal wall hernia containing a loop of herniated small bowel, with findings consistent with a partial small bowel obstruction. There is no complete obstruction, and oral contrast transits to the anorectal junction during the scan time.. ==>The case was discussed with the general surgeon on-call, , who indicated he will follow in consultation, recommended repeat CT scan with oral contrast. * CT abd/pelvis with IV contrast IMPRESSION: There is an anterior abdominal wall periumbilical hernia, containing a short segment of small bowel. Small bowel loops proximal to the herniation are dilated up to 3.5 centimeters in caliber, and this is likely resulting in a degree of bowel obstruction. No inflammation is seen. * CTA chest IMPRESSION: There is a pulmonary embolus in one of the distal right lower lobe pulmonary arterial branches. Anterior abdominal wall hernia, containing a herniated loop of small bowel which appears at least partially obstructed. * CT head without contrast FINDINGS: There is no CT evidence of intracranial mass, hemorrhage, acute territorial infarction, or hydrocephalus. The intracranial arteries are symmetric in density. No acute fracture is seen. There is opacification of the left sphenoid sinus. There is right maxillary sinus mucosal thickening. Mastoids are aerated. IMPRESSION: No CT evidence of acute intracranial abnormality. Sinus disease * CAROTID DOPPLER COMPLETED, <50% STENOSIS BILATERALLY BY DOPPLER VELOCITIES, BILATERAL ANTEGRADE VERTEBRAL FLOW, Initialized on 01/21/18 08:37 - END OF NOTE -Syncope, PE related: treat the PE -Acute Right PE: treat with anticoagulant -IDDM: ada diet, ssi for now -Suicidial ideation: consulted mental health, continue 1013, suicidal precautions with sitter. -Morbid obesity, bmi 47: education on lifestyle modification not well received. -Recent TAVR: Cardiology consulted -pSBO, ?incarcerated umbilical hernia: gen. Surgery notified in ED per records== >d/w Dr. Stone, no pSBO or incarcerated hernia, ok to feed her. -CAD on plavix: held, await Cardiology input -DVT prophylaxis: a/c Start Eliquis, if she tolerated Eliquis then d/c once Psych clears History Interval history: Patient was seen and examined. Follow-up on current diagnosis of syncope. Overnight uneventful. Patient denies any chest pain, shortness breath, nausea/ vomiting or severe headaches. Imaging, nursing note, chart, labs and old chart reviewed. Discussed with patient. Hospitalist Physical - Physical exam Narrative exam: GEN: WDWN, NAD, Awake, Alert, Orientated x 3 HEENT: NCAT, EOMI, PERRL, OP Clear NECK: supple, no adenopathy, no thyromegaly, no JVD CVS/HEART: RRR, normal S1S2, pulses present bilaterally CHEST/LUNGS: CTA B, Symmetrical chest expansion, good air entry bilaterally GI/Abdomen: soft, NTND, good bowel sounds, no guarding or rebound /Bladder: no suprapubic tenderness, no CVA or paraspinal tenderness EXT/Skin: no c/c/e, no obvious rash MSK: FROM x 4 Neuro: CN 2-12 grossly intact, no new focal deficits Psych: calm - Constitutional Vitals: Temp Pulse Resp BP Pulse Ox 97.9 F 71 18 149/37 92 01/22/18 13:13 01/22/18 13:13 01/22/18 13:13 01/22/18 13:13 01/22/18 13:13 General appearance: Present: no acute distress, obese Results - Labs CBC & Chem 7: 01/21/18 10:10 01/21/18 10:10 Labs: Laboratory Last Values WBC 8.7 K/mm3 (4.5-11.0) 01/21/18 10:10 RBC 4.33 M/mm3 (3.65-5.03) 01/21/18 10:10 Hgb 12.0 gm/dl (10.1-14.3) 01/21/18 10:10 Hct 36.7 % (30.3-42.9) 01/21/18 10:10 MCV 85 fl (79-97) 01/21/18 10:10 MCH 28 pg (28-32) 01/21/18 10:10 MCHC 33 % (30-34) 01/21/18 10:10 RDW 14.7 % (13.2-15.2) 01/21/18 10:10 Plt Count 192 K/mm3 (140-440) 01/21/18 10:10 Lymph % (Auto) 18.4 % (13.4-35.0) 01/21/18 10:10 [place] % (Auto) 6.8 % (0.0-7.3) 01/21/18 10:10 Eos % (Auto) 2.1 % (0.0-4.3) 01/21/18 10:10 Baso % (Auto) 0.8 % (0.0-1.8) 01/21/18 10:10 Lymph # 1.6 K/mm3 (1.2-5.4) 01/21/18 10:10 [place] # 0.6 K/mm3 (0.0-0.8) 01/21/18 10:10 Eos # 0.2 K/mm3 (0.0-0.4) 01/21/18 10:10 Baso # 0.1 K/mm3 (0.0-0.1) 01/21/18 10:10 Seg Neutrophils % 71.9 % (40.0-70.0) H 01/21/18 10:10 Seg Neutrophils # 6.2 K/mm3 (1.8-7.7) 01/21/18 10:10 PT 13.2 Sec. (12.2-14.9) 01/20/18 15:27 INR 0.95 (0.87-1.13) 01/20/18 15:27 APTT 28.0 Sec. (24.2-36.6) 01/20/18 15:27 Sodium 142 mmol/L (137-145) 01/21/18 10:10 Potassium 4.3 mmol/L (3.6-5.0) 01/21/18 10:10 Chloride 104.4 mmol/L (98-107) 01/21/18 10:10 Carbon Dioxide 24 mmol/L (22-30) 01/21/18 10:10 Anion Gap 18 mmol/L 01/21/18 10:10 BUN 5 mg/dL (7-17) L 01/21/18 10:10 Creatinine 0.4 mg/dL (0.7-1.2) L 01/21/18 10:10 Estimated GFR > 60 ml/min 01/21/18 10:10 BUN/Creatinine Ratio 13 % 01/21/18 10:10 Glucose 173 mg/dL (65-100) H 01/21/18 10:10 POC Glucose 287 (70-105) H 01/22/18 10:45 Hemoglobin A1c 7.8 % (4-6) H 01/20/18 23:38 Calcium 9.2 mg/dL (8.4-10.2) 01/21/18 10:10 Total Bilirubin 0.50 mg/dL (0.1-1.2) 01/21/18 10:10 AST 18 units/L (5-40) 01/21/18 10:10 ALT 11 units/L (7-56) 01/21/18 10:10 Alkaline Phosphatase 119 units/L (35-129) 01/21/18 10:10 NT-Pro-B Natriuret Pep 85.15 pg/mL (0-900) 01/20/18 15:27 Total Protein 6.4 g/dL (6.3-8.2) 01/21/18 10:10 Albumin 3.7 g/dL (3.9-5) L 01/21/18 10:10 Albumin/Globulin Ratio 1.4 % 01/21/18 10:10 TSH 0.606 mlU/mL (0.270-4.200) 01/20/18 13:07 Urine Color Yellow (Yellow) 01/20/18 14:15 Urine Turbidity Clear (Clear) 01/20/18 14:15 Urine pH 5.0 (5.0-7.0) 01/20/18 14:15 Ur Specific [place] 1.016 (1.003-1.030) 01/20/18 14:15 Urine Protein <15 mg/dl mg/dL (Negative) 01/20/18 14:15 Urine Glucose (UA) 150 mg/dL (Negative) 01/20/18 14:15 Urine Ketones Neg mg/dL (Negative) 01/20/18 14:15 Urine Blood Neg (Negative) 01/20/18 14:15 Urine Nitrite Neg (Negative) 01/20/18 14:15 Urine Bilirubin Neg (Negative) 01/20/18 14:15 Urine Urobilinogen < 2.0 mg/dL (<2.0) 01/20/18 14:15 Ur Leukocyte Esterase Tr (Negative) 01/20/18 14:15 Urine WBC (Auto) 1.0 /HPF (0.0-6.0) 01/20/18 14:15 Urine RBC (Auto) 2.0 /HPF (0.0-6.0) 01/20/18 14:15 U Epithel Cells (Auto) 5.0 /HPF (0-13.0) 01/20/18 14:15 Salicylates < 0.3 mg/dL (2.8-20.0) L 01/20/18 16:44 Urine Opiates Screen Presumptive negative 01/20/18 14:15 Urine Methadone Screen Presumptive negative 01/20/18 14:15 Acetaminophen < 5.0 ug/mL (10.0-30.0) L 01/20/18 16:44 Ur Barbiturates Screen Presumptive negative 01/20/18 14:15 Ur Phencyclidine Scrn Presumptive negative 01/20/18 14:15 Ur Amphetamines Screen Presumptive negative 01/20/18 14:15 U Benzodiazepines Scrn Presumptive negative 01/20/18 14:15 Urine Cocaine Screen Presumptive negative 01/20/18 14:15 U Marijuana (THC) Screen Presumptive negative 01/20/18 14:15 Drugs of Abuse Note Disclamer 01/20/18 14:15 Plasma/Serum Alcohol < 0.01 % (0-0.07) 01/20/18 13:07
[2018-01-22] MEDS ORDERED: ELIQUIS PO SCH (22:00)
[2018-01-23] MEDS: NORCO 10/325 PO PRN ×2 (05:56→14:11)
[2018-01-23 06:28] LABS: Hematocrit 36.6 % (30.3-42.9); Hemoglobin 11.9 gm/dl (10.1-14.3); Mean Corpuscular HGB Conc 33 % (30-34); Mean Corpuscular Hemoglobin 28 pg (28-32); Mean Corpuscular Volume 85 fl (79-97); Platelet Count 185 K/mm3 (140-440); Red Cell Distribution Width 14.3 % (13.2-15.2)
[2018-01-23 06:55] LABS: BUN/Creatinine Ratio 28; Blood Urea Nitrogen 14 mg/dL (7-17); Calcium 8.6 mg/dL (8.4-10.2); Hemolysis Index 2
[2018-01-23] MEDS: HumaLOG SUB-Q SCH ×2 (08:32→14:12)
[2018-01-23] MEDS: SODIUM CHLORIDE FLUSH SYRINGE 10 ML IV SCH (10:29)
[2018-01-23] MEDS: QUESTRAN PO SCH (10:29)
[2018-01-23] MEDS: LYRICA PO SCH (10:30)
[2018-01-23] MEDS: ZESTRIL PO SCH (10:30)
[2018-01-23] MEDS: LASIX PO SCH (10:30)
[2018-01-23] MEDS: COREG PO SCH (10:30)
[2018-01-23] MEDS: ELIQUIS PO SCH (10:31)
[2018-01-23] MEDS: NORVASC PO SCH (10:32)
[2018-01-23] MEDS ORDERED: MAGNESIUM SULFATE 2GM/50ML 2 GM/50 ML BAG IV ONE (11:00)
[2018-01-23 11:51] VITALS: BP 137/45
--- NOTE | 2018-01-23 12:39 | Progress Note ---
Subjective - Reason for Consult Consult date: 01/23/18 Reason for consult: Psychiatry Follow-up - Chief Complaint Chief complaint: "Life is complicated" 72 year old white female who presents to the emergency room with a history of aortic stenosis and coronary artery disease. She is status post multiple coronary stent procedures and most recently last month underwent percutaneous trans-aortic valve replacement/TAVE. She informed the ED nurse that she plan to overdose on insulin, so the patient was placed on a 1013 by ED physician. Today the patient is calm and cooperative during the assessment. Per collateral information from her daughter Francheska at [phone] she stated that her mother has been talking about dying and being depressed for several months. She stated that the patient has a lot of medical issues and seem to be "overwhelmed." The patient admitted that she had been thinking about suicide because she feel like a burden to her family. She rate her depression 7/10 with 10 being the worse and agree to take a medication for depression. She denies SI/HI's and AVH's. Mental Status Exam - Vital signs Last Vital Signs Temp 98.0 F 01/23/18 11:33 Pulse 72 01/23/18 11:33 Resp 20 01/23/18 11:33 BP 137/45 01/23/18 11:33 Pulse Ox 93 01/23/18 11:33 - Exam Narrative exam: MSE: Appearance: calm, cooperative Behavior: regular eye contact Speech: regular rate and tone Mood: "depressed" withdrawn Affect: congruent to mood Thought Process: linear Thought Content: denies SI/HI's and AVH's Motor Activity: lying in bed Cognition: A/O x 3 Insight: fair Judgment: variable Assessment and Plan Impression: MDD. Today the patient is calm and cooperative during the assessment. The patient rate her depression 7/10, with 10 being the worse. DDx: Adjustment DO Recommendations/Plans: Continue 1013 with placement to [facility] today. Start Zoloft 25 mg PO daily for depression. Discussed possible suicidality/ medication induced faisal with patient reference Zoloft.
[2018-01-23] MEDS ORDERED: ZOLOFT PO SCH (13:00)
--- NOTE | 2018-01-23 15:12 | Discharge Summary ---
Providers - Providers Date of Admission: 01/20/18 19:05 Date of discharge: 01/23/18 Attending physician: JACOB HALE 01/20/18 15:09 Consult to Physician [CONS] Urgent Comment: Consulting Provider: KIM CALVILLO Physician Instructions: Reason For Exam: syncope 01/20/18 16:38 Consult to Mental Health [CONS] Urgent Reason For Exam: psych Place consult to:: cnc maintenance mechanic personal caregiver Notified:: awaiting call back 01/20/18 18:40 Consult to Physician [CONS] Urgent Comment: Consulting Provider: EMETERIO STONE Physician Instructions: Reason For Exam: abd pain 01/22/18 10:43 Occupational Therapy Evaluate and Treat [CONS] Urgent Comment: Reason For Exam: GENERAL WEAKNESS FALL RISK Physical Therapy Evaluation and Treat [CONS] Urgent Comment: Reason For Exam: GENERAL WEAKNESS FALL RISK Primary care physician: CUTTER MACHINE TENDER Hospitalization Condition: Stable Hospital course: Patient is a 72-year-old woman with a history of aortic stenosis and coronary artery disease. She is status post multiple coronary stent procedures, and most recently last month underwent percutaneous trans-aortic valve replacement/ TAVR. She states that she underwent the percutaneous procedure because she was deemed a high risk for surgical aortic valve replacement who pw syncope and found to have PE. She also complained of abdominal distention, unintentional weight gain, and SI. She informed the ED nurse that she plan to overdose on insulin, placed on a 1013 by ED physician. * CT abd/pelvis without contrast IMPRESSION: There is an anterior abdominal wall hernia containing a loop of herniated small bowel, with findings consistent with a partial small bowel obstruction. There is no complete obstruction, and oral contrast transits to the anorectal junction during the scan time.. ==>The case was discussed with the general surgeon on-call, , who indicated he will follow in consultation, recommended repeat CT scan with oral contrast. * CT abd/pelvis with IV contrast IMPRESSION: There is an anterior abdominal wall periumbilical hernia, containing a short segment of small bowel. Small bowel loops proximal to the herniation are dilated up to 3.5 centimeters in caliber, and this is likely resulting in a degree of bowel obstruction. No inflammation is seen. * CTA chest IMPRESSION: There is a pulmonary embolus in one of the distal right lower lobe pulmonary arterial branches. Anterior abdominal wall hernia, containing a herniated loop of small bowel which appears at least partially obstructed. * CT head without contrast FINDINGS: There is no CT evidence of intracranial mass, hemorrhage, acute territorial infarction, or hydrocephalus. The intracranial arteries are symmetric in density. No acute fracture is seen. There is opacification of the left sphenoid sinus. There is right maxillary sinus mucosal thickening. Mastoids are aerated. IMPRESSION: No CT evidence of acute intracranial abnormality. Sinus disease * CAROTID DOPPLER COMPLETED, <50% STENOSIS BILATERALLY BY DOPPLER VELOCITIES, BILATERAL ANTEGRADE VERTEBRAL FLOW, Initialized on 01/21/18 08:37 - END OF NOTE -Syncope, PE related: treat the PE -Acute Right PE: treat with anticoagulant -IDDM: ada diet, ssi for now -Hypomagnesemia: replace -Suicidial ideation: consulted mental health, continue 1013, suicidal precautions with sitter. -Morbid obesity, bmi 47: education on lifestyle modification not well received. -Recent TAVR: Cardiology consulted -pSBO, ?incarcerated umbilical hernia: gen. Surgery notified in ED per records== >d/w Dr. Stone, no pSBO or incarcerated hernia, ok to feed her. -CAD on plavix: held, await Cardiology input -DVT prophylaxis: a/c medical stable to discharge to inpatient psych Disposition: DC/TX-65 PSY HOSP/PSY UNIT Time spent for discharge: 35 minutes Core Measure Documentation - Palliative Care Palliative Care/ Comfort Measures: Not Applicable - Core Measures Any of the following diagnoses?: none - VTE Discharge Requirements Deep Vein Thrombosis/Pulmonary Embolism Present on Admission: No Has pt received <5 days of overlap therapy or INR<2.0: No Anticoagulant overlap therapy prescribed at discharge: No Contraindication No Overlap Therapy order at DC: Not Indicated Exam - Physical Exam Narrative exam: GEN: WDWN, NAD, Awake, Alert, Orientated x 3 HEENT: NCAT, EOMI, PERRL, OP Clear NECK: supple, no adenopathy, no thyromegaly, no JVD CVS/HEART: RRR, normal S1S2, pulses present bilaterally CHEST/LUNGS: CTA B, Symmetrical chest expansion, good air entry bilaterally GI/Abdomen: soft, NTND, good bowel sounds, no guarding or rebound /Bladder: no suprapubic tenderness, no CVA or paraspinal tenderness EXT/Skin: no c/c/e, no obvious rash MSK: FROM x 4 Neuro: CN 2-12 grossly intact, no new focal deficits Psych: calm - Constitutional Vitals: Temp Pulse Resp BP Pulse Ox 98.0 F 72 20 137/45 93 01/23/18 11:33 01/23/18 11:33 01/23/18 11:33 01/23/18 11:33 01/23/18 11:33 Plan Activity: other (no strenous activities) Diet: low salt, diabetic Special Instructions: record daily BP diary, record blood sugar diary (achs) Follow up with: PRIMARY CARE, [Primary Care Provider] - 3-5 Days Prescriptions: Zolpidem [Ambien] 5 mg PO QHS PRN #15 tablet PRN Reason: Insomnia Apixaban [Eliquis] 5 mg PO Q12HR #60 tablet Apixaban [Eliquis] 10 mg PO Q12H #60 tablet Cholestyramine (with Sugar) [Questran] 4 gm PO BID #30 packet HYDROcodone/APAP 10-325 [[place] 10-325 mg TAB] 1 tab PO BID PRN #15 tablet PRN Reason: Pain , Severe (7-10) Sertraline [Zoloft] 25 mg PO QDAY #30 tablet
--- NOTE | 2018-01-23 15:23 | Progress Note ---
Assessment and Plan Assessment and plan: Patient is a 72-year-old woman with a history of aortic stenosis and coronary artery disease. She is status post multiple coronary stent procedures, and most recently last month underwent percutaneous trans-aortic valve replacement/ TAVR. She states that she underwent the percutaneous procedure because she was deemed a high risk for surgical aortic valve replacement who pw syncope and found to have PE. She also complained of abdominal distention, unintentional weight gain, and SI. She informed the ED nurse that she plan to overdose on insulin, placed on a 1013 by ED physician. * CT abd/pelvis without contrast IMPRESSION: There is an anterior abdominal wall hernia containing a loop of herniated small bowel, with findings consistent with a partial small bowel obstruction. There is no complete obstruction, and oral contrast transits to the anorectal junction during the scan time.. ==>The case was discussed with the general surgeon on-call, , who indicated he will follow in consultation, recommended repeat CT scan with oral contrast. * CT abd/pelvis with IV contrast IMPRESSION: There is an anterior abdominal wall periumbilical hernia, containing a short segment of small bowel. Small bowel loops proximal to the herniation are dilated up to 3.5 centimeters in caliber, and this is likely resulting in a degree of bowel obstruction. No inflammation is seen. * CTA chest IMPRESSION: There is a pulmonary embolus in one of the distal right lower lobe pulmonary arterial branches. Anterior abdominal wall hernia, containing a herniated loop of small bowel which appears at least partially obstructed. * CT head without contrast FINDINGS: There is no CT evidence of intracranial mass, hemorrhage, acute territorial infarction, or hydrocephalus. The intracranial arteries are symmetric in density. No acute fracture is seen. There is opacification of the left sphenoid sinus. There is right maxillary sinus mucosal thickening. Mastoids are aerated. IMPRESSION: No CT evidence of acute intracranial abnormality. Sinus disease * CAROTID DOPPLER COMPLETED, <50% STENOSIS BILATERALLY BY DOPPLER VELOCITIES, BILATERAL ANTEGRADE VERTEBRAL FLOW, Initialized on 01/21/18 08:37 - END OF NOTE -Syncope, PE related: treat the PE -Acute Right PE: treat with anticoagulant -IDDM: ada diet, ssi for now -Suicidial ideation: consulted mental health, continue 1013, suicidal precautions with sitter. -Morbid obesity, bmi 47: education on lifestyle modification not well received. -Recent TAVR: Cardiology consulted -pSBO, ?incarcerated umbilical hernia: gen. Surgery notified in ED per records== >d/w Dr. Stone, no pSBO or incarcerated hernia, ok to feed her. -CAD on plavix: held, await Cardiology input -DVT prophylaxis: a/c then d/c once Psych bed available History Interval history: Patient was seen and examined. Follow-up on current diagnosis of syncope. Overnight uneventful. Patient denies any chest pain, shortness breath, nausea/ vomiting or severe headaches. Imaging, nursing note, chart, labs and old chart reviewed. Discussed with patient. Hospitalist Physical - Physical exam Narrative exam: GEN: WDWN, NAD, Awake, Alert, Orientated x 3 HEENT: NCAT, EOMI, PERRL, OP Clear NECK: supple, no adenopathy, no thyromegaly, no JVD CVS/HEART: RRR, normal S1S2, pulses present bilaterally CHEST/LUNGS: CTA B, Symmetrical chest expansion, good air entry bilaterally GI/Abdomen: soft, NTND, good bowel sounds, no guarding or rebound /Bladder: no suprapubic tenderness, no CVA or paraspinal tenderness EXT/Skin: no c/c/e, no obvious rash MSK: FROM x 4 Neuro: CN 2-12 grossly intact, no new focal deficits Psych: calm - Constitutional Vitals: Temp Pulse Resp BP Pulse Ox 98.0 F 72 20 137/45 93 01/23/18 11:33 01/23/18 11:33 01/23/18 11:33 01/23/18 11:33 01/23/18 11:33 General appearance: Present: no acute distress, obese Results - Labs CBC & Chem 7: 01/23/18 05:43 01/23/18 05:43 Labs: Laboratory Last Values WBC 6.9 K/mm3 (4.5-11.0) 01/23/18 05:43 RBC 4.30 M/mm3 (3.65-5.03) 01/23/18 05:43 Hgb 11.9 gm/dl (10.1-14.3) 01/23/18 05:43 Hct 36.6 % (30.3-42.9) 01/23/18 05:43 MCV 85 fl (79-97) 01/23/18 05:43 MCH 28 pg (28-32) 01/23/18 05:43 MCHC 33 % (30-34) 01/23/18 05:43 RDW 14.3 % (13.2-15.2) 01/23/18 05:43 Plt Count 185 K/mm3 (140-440) 01/23/18 05:43 Lymph % (Auto) 18.4 % (13.4-35.0) 01/21/18 10:10 [place] % (Auto) 6.8 % (0.0-7.3) 01/21/18 10:10 Eos % (Auto) 2.1 % (0.0-4.3) 01/21/18 10:10 Baso % (Auto) 0.8 % (0.0-1.8) 01/21/18 10:10 Lymph # 1.6 K/mm3 (1.2-5.4) 01/21/18 10:10 [place] # 0.6 K/mm3 (0.0-0.8) 01/21/18 10:10 Eos # 0.2 K/mm3 (0.0-0.4) 01/21/18 10:10 Baso # 0.1 K/mm3 (0.0-0.1) 01/21/18 10:10 Seg Neutrophils % 71.9 % (40.0-70.0) H 01/21/18 10:10 Seg Neutrophils # 6.2 K/mm3 (1.8-7.7) 01/21/18 10:10 PT 13.2 Sec. (12.2-14.9) 01/20/18 15:27 INR 0.95 (0.87-1.13) 01/20/18 15:27 APTT 28.0 Sec. (24.2-36.6) 01/20/18 15:27 Sodium 140 mmol/L (137-145) 01/23/18 05:43 Potassium 4.0 mmol/L (3.6-5.0) 01/23/18 05:43 Chloride 100.9 mmol/L (98-107) 01/23/18 05:43 Carbon Dioxide 26 mmol/L (22-30) 01/23/18 05:43 Anion Gap 17 mmol/L 01/23/18 05:43 BUN 14 mg/dL (7-17) 01/23/18 05:43 Creatinine 0.5 mg/dL (0.7-1.2) L 01/23/18 05:43 Estimated GFR > 60 ml/min 01/23/18 05:43 BUN/Creatinine Ratio 28 % 01/23/18 05:43 Glucose 175 mg/dL (65-100) H 01/23/18 05:43 POC Glucose 243 (70-105) H 01/23/18 11:52 Hemoglobin A1c 7.8 % (4-6) H 01/20/18 23:38 Calcium 8.6 mg/dL (8.4-10.2) 01/23/18 05:43 Magnesium 1.60 mg/dL (1.7-2.3) L 01/23/18 05:43 Total Bilirubin 0.50 mg/dL (0.1-1.2) 01/21/18 10:10 AST 18 units/L (5-40) 01/21/18 10:10 ALT 11 units/L (7-56) 01/21/18 10:10 Alkaline Phosphatase 119 units/L (35-129) 01/21/18 10:10 NT-Pro-B Natriuret Pep 85.15 pg/mL (0-900) 01/20/18 15:27 Total Protein 6.4 g/dL (6.3-8.2) 01/21/18 10:10 Albumin 3.7 g/dL (3.9-5) L 01/21/18 10:10 Albumin/Globulin Ratio 1.4 % 01/21/18 10:10 TSH 0.606 mlU/mL (0.270-4.200) 01/20/18 13:07 Urine Color Yellow (Yellow) 01/20/18 14:15 Urine Turbidity Clear (Clear) 01/20/18 14:15 Urine pH 5.0 (5.0-7.0) 01/20/18 14:15 Ur Specific [place] 1.016 (1.003-1.030) 01/20/18 14:15 Urine Protein <15 mg/dl mg/dL (Negative) 01/20/18 14:15 Urine Glucose (UA) 150 mg/dL (Negative) 01/20/18 14:15 Urine Ketones Neg mg/dL (Negative) 01/20/18 14:15 Urine Blood Neg (Negative) 01/20/18 14:15 Urine Nitrite Neg (Negative) 01/20/18 14:15 Urine Bilirubin Neg (Negative) 01/20/18 14:15 Urine Urobilinogen < 2.0 mg/dL (<2.0) 01/20/18 14:15 Ur Leukocyte Esterase Tr (Negative) 01/20/18 14:15 Urine WBC (Auto) 1.0 /HPF (0.0-6.0) 01/20/18 14:15 Urine RBC (Auto) 2.0 /HPF (0.0-6.0) 01/20/18 14:15 U Epithel Cells (Auto) 5.0 /HPF (0-13.0) 01/20/18 14:15 Salicylates < 0.3 mg/dL (2.8-20.0) L 01/20/18 16:44 Urine Opiates Screen Presumptive negative 01/20/18 14:15 Urine Methadone Screen Presumptive negative 01/20/18 14:15 Acetaminophen < 5.0 ug/mL (10.0-30.0) L 01/20/18 16:44 Ur Barbiturates Screen Presumptive negative 01/20/18 14:15 Ur Phencyclidine Scrn Presumptive negative 01/20/18 14:15 Ur Amphetamines Screen Presumptive negative 01/20/18 14:15 U Benzodiazepines Scrn Presumptive negative 01/20/18 14:15 Urine Cocaine Screen Presumptive negative 01/20/18 14:15 U Marijuana (THC) Screen Presumptive negative 01/20/18 14:15 Drugs of Abuse Note Disclamer 01/20/18 14:15 Plasma/Serum Alcohol < 0.01 % (0-0.07) 01/20/18 13:07
[2018-01-29] MEDS ORDERED: ELIQUIS PO SCH (10:00)
== END 2018-01-23 18:40 | DRG 176 ==
LOC: ED 12:39 → 4A 19:05
PROVIDERS: ADMIT Internal Medicine; ATTEND Internal Medicine
DX: I26.99 Other pulmonary embolism without acute cor pulmonale (principal); R45.851 Suicidal ideations; Z68.42 Body mass index [BMI] 45.0-49.9, adult; Z85.72 Personal history of non-Hodgkin lymphomas; E66.01 Morbid (severe) obesity due to excess calories; Z71.3 Dietary counseling and surveillance; I25.10 Atherosclerotic heart disease of native coronary artery without angina pectoris; I35.0 Nonrheumatic aortic (valve) stenosis; Z95.5 Presence of coronary angioplasty implant and graft; Z95.2 Presence of prosthetic heart valve; E11.9 Type 2 diabetes mellitus without complications; Z79.4 Long term (current) use of insulin; E83.42 Hypomagnesemia; M19.90 Unspecified osteoarthritis, unspecified site; E78.5 Hyperlipidemia, unspecified; Z90.49 Acquired absence of other specified parts of digestive tract; Z96.659 Presence of unspecified artificial knee joint; Z82.49 Family history of ischemic heart disease and other diseases of the circulatory system; Z88.2 Allergy status to sulfonamides; K43.2 Incisional hernia without obstruction or gangrene; F32.9 Major depressive disorder, single episode, unspecified; E78.00 Pure hypercholesterolemia, unspecified; G89.4 Chronic pain syndrome; I50.9 Heart failure, unspecified; I11.0 Hypertensive heart disease with heart failure; M79.7 Fibromyalgia
CPT/HCPCS: 36415; 70450; 71275; 74176; 74177; 80048; 80053; 80307; 80320; 81001; 82962; 83036; 83735; 83880; 84443; 85025; 85027; 85610; 85730; 93005; 93010; 93880; A9270-GY; G0480; J1650; J1815; J2270; J2405; J3010; J3475; J7050; Q9967

== ENCOUNTER 2018-02-16 11:28 | Day surgery (SDC) | payer MEDICARE ==
[~2018-02-16 11:28] MED LIST: IOPIDINE OD ONE; MYDRIACYL OD ONE; NEOFRIN OD ONE
[2018-02-16] MEDS ORDERED: MYDRIACYL OD ONE (12:10)
[2018-02-16] MEDS ORDERED: NEOFRIN OD ONE (12:10)
[2018-02-16] MEDS ORDERED: IOPIDINE OD ONE (12:10)
[2018-02-16] MEDS ORDERED: MYDRIACYL ONE (12:16)
[2018-02-16 14:52] VITALS: BP 120/60
== END 2018-02-16 11:29 | disposition home or self-care (01) ==
LOC: OR 11:28
PROVIDERS: ATTEND Ophthalmology
DX: H26.491 Other secondary cataract, right eye (principal); E78.00 Pure hypercholesterolemia, unspecified; I11.0 Hypertensive heart disease with heart failure; I50.9 Heart failure, unspecified; K21.9 Gastro-esophageal reflux disease without esophagitis; I25.10 Atherosclerotic heart disease of native coronary artery without angina pectoris; M19.90 Unspecified osteoarthritis, unspecified site; E66.9 Obesity, unspecified; Z68.41 Body mass index [BMI] 40.0-44.9, adult; Z96.653 Presence of artificial knee joint, bilateral; Z95.5 Presence of coronary angioplasty implant and graft; Z90.49 Acquired absence of other specified parts of digestive tract; Z90.710 Acquired absence of both cervix and uterus; Z98.891 History of uterine scar from previous surgery; Z95.2 Presence of prosthetic heart valve; Z98.42 Cataract extraction status, left eye; Z98.41 Cataract extraction status, right eye; Z98.890 Other specified postprocedural states
CPT/HCPCS: 82962